=== PATIENT | male | born 1980 | race Caucasian/White ===

== ENCOUNTER 2022-08-04 18:59 | Emergency (ER) | payer SELFPAY ==
[2022-08-04] MEDS ORDERED: Boostrix 0.5 ML (Tdap) VIAL (>/=7 yrs of age) ONE (19:21)
[2022-08-04] MEDS ORDERED: HYDROcodone/Acetaminophen 5/325 mg Tablet ONE (20:17)
[2022-08-04] MEDS ORDERED: Bacitracin 1 PK ONE (20:20)
== END 2022-08-04 21:30 | disposition home or self-care (01) ==
LOC: MADERS 18:59
DX: S82.851A Displaced trimalleolar fracture of right lower leg, initial encounter for closed fracture (principal); S93.402A Sprain of unspecified ligament of left ankle, initial encounter; S50.812A Abrasion of left forearm, initial encounter; S50.811A Abrasion of right forearm, initial encounter; W20.8XXA Other cause of strike by thrown, projected or falling object, initial encounter; F17.210 Nicotine dependence, cigarettes, uncomplicated; Z23 Encounter for immunization
CPT/HCPCS: 27808; 90471; 90715